=== PATIENT | female | born 1990 | race Caucasian/White ===

== ENCOUNTER → 2017-05-31 | Outpatient (REF) | payer BC ==
[~2017-05-31] MED LIST: ACET50TA PO; IBUP60TA PO; PREN1TAB11 PO; VITAPRTA PO
== END ==
LOC: M LAB REF 17:37
PROVIDERS: ATTEND Advanced Practice Midwife
DX: Z12.4 Encounter for screening for malignant neoplasm of cervix (principal)

== ENCOUNTER → 2017-06-24 | Outpatient (CLI) | payer BC ==
[2017-06-24 19:52] LABS: FREE T4 1.08 NG/DL (0.76-1.46)
== END ==
LOC: M LRY 11:15
PROVIDERS: ATTEND Advanced Practice Midwife
DX: F41.1 Generalized anxiety disorder (principal)

== ENCOUNTER → 2017-12-20 | Outpatient (CLI) | payer BC | LOC: M LRY 11:49 | DX: S80.11XA Contusion of right lower leg, initial encounter (principal); Y92.89 Other specified places as the place of occurrence of the external cause; Y93.89 Activity, other specified; Y99.8 Other external cause status; X58.XXXA Exposure to other specified factors, initial encounter | CPT/HCPCS: 73590 ==

== ENCOUNTER → 2018-10-24 | Outpatient (REF) | payer BC ==
[~2018-10-24] MED LIST changes: -ACET50TA PO; +IBUP600T42 PO; -IBUP60TA PO; +MAPA500T2 PO
== END ==
LOC: M LAB REF 17:30
PROVIDERS: ATTEND Advanced Practice Midwife
DX: Z01.419 Encounter for gynecological examination (general) (routine) without abnormal findings (principal)
CPT/HCPCS: 87624; G0123